=== PATIENT | male | born 1995 | race Caucasian/White ===

== ENCOUNTER 2018-02-12 15:20 | Emergency (ER) | payer MEDICAID ==
[~2018-02-12] VITALS: Ht 180.3 cm; Wt 149.7 kg
[~2018-02-12 15:20] MED LIST: AMOCLA500 PO; CRUTCH4 USE; Cheratussin AC118 ML PO; LOPE2C PO; LORA10ER PO; Mucinex D 1,201 EACH PO; ONDA4 PO
== END 2018-02-12 17:08 | disposition home or self-care (01) ==
LOC: ER 15:20
DX: M54.9 Dorsalgia, unspecified (principal); G89.29 Other chronic pain; R20.0 Anesthesia of skin
CPT/HCPCS: 99281